=== PATIENT | male | born 1980 | race Two or more races ===

== ENCOUNTER 2020-09-09 12:06 | Inpatient (IN) | payer OTHER ==
[~2020-09-09] VITALS: Ht 177.8 cm; Wt 99.8 kg
[2020-09-09] MEDS ORDERED: TRAZODONE HCL50 MG PO (12:35)
[2020-09-09] MEDS ORDERED: LYRICA200 MG PO (12:36)
--- NOTE | 2020-09-09 12:38 | NUR ---
SE RECIBE PTE MASCULINO, MAYOR DE EDAD, ALERTA Y ORIENTADO X 3 EL CUAL REFIERE ESTAR CON DIARREAS DE HACE MAS DE UN MES, DOLOR ABDOMINAL Y ACIDEZ ESTOMACAL. SE MIDEN SV Y SE UBICA PTE EN OBSERVACION PARA ATENCION MEDICA.
--- NOTE | 2020-09-09 13:16 | NUR ---
SE RECIBE PTE MASCULINO DE 40 YRS ALERTA CONCIENTE Y TRANAUILO EN COMPANIA DE FAMILIAR. PTE ES EVALUADO POR EL AUDREY KHOURY QUIEN ORDENA TRATAMIENTO LA CUAL SE EJECUTA POR MS.DIAS GARNER .SE ORIENTA A PTE SOBRE LA BARBARA DE GASTROVIEW PARA ESTUDIO DE CT SCAN. SE MANTIENE BAJON OBSERVACION.
--- NOTE | 2020-09-09 16:10 | NUR ---
PACIENTE ALERTA Y ORIENTADO EN KALEB AL ESFERAS CON BUEN PATRON RESPIRATORIO Y PIEL TIBIA AL TACTO. SE OBSERVA IVF' PATENTE JORGE DE EDEMA Y ENROJECIMIENTO BAJANDO UN .9NSS @ 150ML/HR. MR. Srinivasa TUCKER ORIENTA A PACIENTE SOBRE PROCEDIMIENTO, REFIERE ENTENDER. EXTRAE CULTIVOS DE SAJI CON MEDIDAS ASEPTICAS Y ESTERILES, ADMINISTRA MEDICAMENTOS SHAY ORDEN MEDICA. PENDIENTE CONSULTA CON DR. LAND.
== END 2020-09-10 16:58 | disposition home or self-care (01) | DRG 387 ==
LOC: ER 12:06 → SEC-K 18:44 → MEDJ 09-10 07:50 → MEDI 09-10 14:03
PROVIDERS: ADMIT Internal Medicine; ATTEND Internal Medicine
PROC: BW21ZZZ Computerized Tomography (CT Scan) of Abdomen and Pelvis (ICD-10-PCS; principal; 2020-09-09)
DX: K51.811 Other ulcerative colitis with rectal bleeding (principal); E86.0 Dehydration; K52.89 Other specified noninfective gastroenteritis and colitis; Z20.828 Contact with and (suspected) exposure to other viral communicable diseases